=== PATIENT | male | born 1960 | race Hispanic/Latino ===

== ENCOUNTER → 2019-02-25 | Outpatient (CLI) | payer OTHER | LOC: LAB.O 15:38 | PROVIDERS: ATTEND Nurse Practitioner Family | DX: R73.09 Other abnormal glucose (principal); I10 Essential (primary) hypertension; E78.2 Mixed hyperlipidemia ==

== ENCOUNTER → 2020-03-29 | Outpatient (CLI) | payer BC ==
--- NOTE | 2020-03-30 16:03 | RAD ---
EXAM DESCRIPTION: Shoulder x-ray Right 2 Views CLINICAL HISTORY: PAIN COMPARISON: None Available. TECHNIQUE: Two views of the right shoulder. FINDINGS: There is adequate internal and external rotation. There is no fracture or dislocation. Degenerative narrowing of the right AC joint with inferior spurring. O2 or inferiorly spurred periphery of the right acromion. No focal bone lesion. Calcified nodes in the right exit left. IMPRESSION: Degenerative changes as described. Electronically signed by: Adria Serra MD 03/30/2020 4:02 PM CDT
== END ==
LOC: YCFC.O 07:40
PROVIDERS: ATTEND Family Medicine
DX: M19.011 Primary osteoarthritis, right shoulder (principal); I10 Essential (primary) hypertension; E78.5 Hyperlipidemia, unspecified; R53.83 Other fatigue; R73.09 Other abnormal glucose